=== PATIENT | female | born 1990 | race African-American/Black ===

== ENCOUNTER 2017-04-23 14:51 | Emergency (ER) | payer OTHER | END 2017-04-23 22:10 | disposition home or self-care (01) | LOC: M ED 22:10 | DX: S83.412A Sprain of medial collateral ligament of left knee, initial encounter (principal); X50.1XXA Overexertion from prolonged static or awkward postures, initial encounter; Y92.9 Unspecified place or not applicable; Y93.9 Activity, unspecified | CPT/HCPCS: 99283 ==

== ENCOUNTER → 2017-10-01 | Outpatient (CLI) | payer OTHER | LOC: M RAD 13:16 | DX: N63.20 Unspecified lump in the left breast, unspecified quadrant (principal) | CPT/HCPCS: 76642 ==

== ENCOUNTER → 2018-01-07 | Outpatient (CLI) | payer OTHER | LOC: M RAD 14:18 | DX: N63.20 Unspecified lump in the left breast, unspecified quadrant (principal) | CPT/HCPCS: 76642 ==

== ENCOUNTER → 2018-01-19 | Outpatient (CLI) | payer OTHER ==
[~2018-01-19] MED LIST: LIDOCAINE 1% MDV 20ML VIAL As Ordered
== END ==
LOC: M RADPRO 12:10
DX: D24.2 Benign neoplasm of left breast (principal); N64.89 Other specified disorders of breast
CPT/HCPCS: 19083